=== PATIENT | male | born 1950 | race Two or more races ===

== ENCOUNTER 2017-04-14 01:42 | Emergency (ER) | payer MEDICARE, OTHER ==
[2017-04-14] MEDS ORDERED: Aspirin Low Dose CHEW TAB* 81 MG PO ONE (02:07)
--- NOTE | 2017-04-14 02:09 | ED ---
Dominic Meléndez Thomas, scribed for Robert Royal MD on 04/14/17 at 0203 . HPI Chest Pain - HPI Summary HPI Summary: The pt is a 67 y/o M presenting to the ED c/o CP that began 23:00 yesterday. The pain is described as a pressure quality and is in his L chest. He took liquid antacid for the pain to no apparent relief of pain. The pain is not worsened or improved by movement. He still feels CP in the ED. He additionally c /o vomiting (2x since onset of pain). Last night he ate gespacho and tuna fish. - History of Current Complaint Chief Complaint: EDChestPainROMI Time Seen by Provider: 04/14/17 02:00 Hx Obtained From: Patient Onset/Duration: Started Hours Ago - at 23:00 on 04/13 (three hours since presentation to the ED), Still Present Current Severity: Moderate Pain Intensity: 5 Pain Scale Used: 0-10 Numeric Chest Pain Location: Discrete at: - L chest Character: Pressure/Squeezing Aggravating Factor(s): Nothing Alleviating Factor(s): Nothing Associated Signs and Symptoms: Positive: Vomiting - 2x since onset of pain - Allergy/Home Medications Allergies/Adverse Reactions: Allergies Allergy/AdvReac Type Severity Reaction Status Date / Time Shellfish Allergy Allergy Itching Verified 12/26/13 07:54 PMH/Surg Hx/FS Hx/Imm Hx Previously Healthy: No Endocrine/Hematology History: Denies: Hx Diabetes, Hx Thyroid Disease Cardiovascular History: Denies: Hx Hypertension Respiratory History: Denies: Hx Asthma, Hx Chronic Obstructive Pulmonary Disease (COPD) GI History: Denies: Hx Ulcer - Surgical History Surgery Procedure, Year, and Place: inguinal right hernia surgery Infectious Disease History: Denies: Hx Clostridium Difficile, Hx Hepatitis, Hx Human Immunodeficiency Virus (HIV), Hx of Known/Suspected MRSA, Hx Shingles, Hx Tuberculosis, Traveled Outside the [place] in Last 30 Days - Family History Known Family History: Negative: Hypertension, Diabetes - Social History Alcohol Use: Occasionally Substance Use Type: Reports: None Review of Systems Constitutional: Negative Negative: Fever Eyes: Negative ENT: Negative Positive: Chest Pain - pressure quality, onset 23:00 04/13 (three hours before presentation to ED) Respiratory: Negative Positive: Vomiting - 2x since onset of pain Genitourinary: Negative Musculoskeletal: Negative Skin: Negative Neurological: Negative Psychological: Normal All Other Systems Reviewed And Are Negative: Yes Physical Exam Triage Information Reviewed: Yes Vital Signs On Initial Exam: Initial Vitals Temp Pulse Resp BP Pulse Ox 97 F 58 14 156/75 99 04/14/17 01:49 04/14/17 01:49 04/14/17 01:49 04/14/17 01:49 04/14/17 01:49 Vital Signs Reviewed: Yes Appearance: Positive: Well-Appearing, No Pain Distress Skin: Positive: Warm Head/Face: Positive: Normal Head/Face Inspection Eyes: Positive: JOSEMANUEL ENT: Positive: Hearing grossly normal Neck: Positive: Supple Respiratory/Lung Sounds: Positive: Clear to Auscultation, Breath Sounds Present Cardiovascular: Positive: RRR Abdomen Description: Positive: Nontender, No Organomegaly, Soft Bowel Sounds: Positive: Present Musculoskeletal: Positive: Strength/ROM Intact Neurological: Positive: Alert, Oriented to Person Place, Time Psychiatric: Positive: Affect/Mood Appropriate Diagnostics - Vital Signs Vital Signs Temp Pulse Resp BP Pulse Ox 04/14/17 01:49 97 F 58 14 156/75 99 - Laboratory Result Diagrams: 04/14/17 02:00 04/14/17 02:00 Lab Statement: Any lab studies that have been ordered have been reviewed, and results considered in the medical decision making process. - Radiology CXR Xray Interpretation: No Acute Changes - No evidence of acute cardiopulmonary disease. Radiology Interpretation Completed By: ED Physician - EKG 01:55 Cardiac Rate: Bradycardia - 57 BPM EKG Interpretation: Sinus Bradycardia. Re-Evaluation - Re-Evaluation First Eval Re-Evaluation Time: 06:11 Change: Improved - results d/w pt, pt pain free Chest Pain Course/Dx - Diagnoses Provider Diagnoses: Chest pain Discharge - Discharge Plan Condition: Improved Disposition: HOME Patient Education Materials: Chest Pain (ED) Referrals: Andrew Bailey MD [Primary Care Provider] - 3 Days Additional Instructions: Follow up with your primary care provider. Try to eat a bland diet. The documentation as recorded by the Dominic segundo Thomas accurately reflects the service I personally performed and the decisions made by , Robert Royal MD.
[2017-04-14 02:25] LABS: Hematocrit 48 % (42-52); Hemoglobin 16.4 g/dl (14.0-18.0); Mean Corpuscular HGB Conc 34 g/dl (31-36); Mean Corpuscular Hemoglobin 32 pg (27-31); Mean Corpuscular Volume 92 fL (80-94); Mean Platelet Volume 8 um3 (7.4-10.4); Red Blood Count 5.21 10^6/ul (4.0-5.4); Red Cell Distribution Width 13 % (10.5-15); White Blood Count 15.6 10^3/ul (3.5-10.8)
[2017-04-14 02:37] LABS: Albumin 4.7 g/dL (3.2-5.2); Calcium 9.4 mg/dL (8.6-10.3); EGFR African American 95.3 (>60); EGFR Non-African American 74.1 (>60); Globulin 2.8 g/dL (2-4); Magnesium 2.2 mg/dL (1.9-2.7); Potassium 3.5 mmol/L (3.5-5.0); Total Bilirubin 1.7 mg/dL (0.2-1.0); Total Protein 7.5 g/dL (6.4-8.9)
[2017-04-14 06:02] VITALS: BP 152/73
--- NOTE | 2017-04-14 07:46 | RAD ---
HISTORY: Chest pain COMPARISONS: None VIEWS: 4: Frontal dual-energy and lateral views of the chest. FINDINGS: CARDIOMEDIASTINAL SILHOUETTE: The cardiomediastinal silhouette is normal. SREE: The sree are normal. PLEURA: The costophrenic angles are sharp. No pleural abnormalities are noted. LUNG PARENCHYMA: The lungs are clear. ABDOMEN: The upper abdomen is clear. There is no subphrenic gas. BONES AND SOFT TISSUES: No bone or soft tissue abnormalities are noted. OTHER: None. IMPRESSION: NO ACTIVE CARDIOPULMONARY DISEASE.
== END 2017-04-14 06:40 | disposition home or self-care (01) ==
LOC: ED 01:42
DX: R07.9 Chest pain, unspecified (principal); R11.10 Vomiting, unspecified
CPT/HCPCS: 36415; 71020; 80053; 83605; 83735; 84484; 85025; 93005; 99285; A9270-GY

== ENCOUNTER 2017-04-21 22:36 | Emergency (ER) | payer MEDICARE, OTHER ==
[2017-04-21 22:40] VITALS: BP 164/81
== END 2017-04-22 00:01 | disposition left against medical advice (07) ==
LOC: ED 22:36
DX: R10.9 Unspecified abdominal pain (principal); Z53.21 Procedure and treatment not carried out due to patient leaving prior to being seen by health care provider

== ENCOUNTER 2017-04-22 10:59 | Inpatient (IN) | payer MEDICARE, OTHER ==
[2017-04-22] MEDS ORDERED: Ondansetron TAB* 4 MG PO ONE (11:21)
[2017-04-22] MEDS ORDERED: NS 0.9% 1000 ML* 1,000 ML IV ONE (11:21)
[2017-04-22] MEDS ORDERED: Lidocaine 2% VISCOUS* 15 ML UDC PO ONE (11:21)
[2017-04-22] MEDS ORDERED: Al Hydrox/Mg Hydrox/Simet LIQ* 30 ML UDC PO ONE (11:21)
[2017-04-22] MEDS ORDERED: Pantoprazole IV* 40 MG IV ONE (11:21)
[2017-04-22 11:55] LABS: Hematocrit 49 % (42-52); Hemoglobin 16.3 g/dl (14.0-18.0); Mean Corpuscular HGB Conc 34 g/dl (31-36); Mean Corpuscular Hemoglobin 31 pg (27-31); Mean Corpuscular Volume 93 fL (80-94); Mean Platelet Volume 8 um3 (7.4-10.4); Red Blood Count 5.21 10^6/ul (4.0-5.4); Red Cell Distribution Width 12 % (10.5-15); White Blood Count 12.6 10^3/ul (3.5-10.8)
[2017-04-22 12:12] LABS: Albumin 4.5 g/dL (3.2-5.2); BUN/Creatinine Ratio 12.1 (8-20); C Reactive Protein 58.82 mg/L (< 5.00); Calcium 9.6 mg/dL (8.6-10.3); EGFR African American 96.4 (>60); Magnesium 2.1 mg/dL (1.9-2.7); Potassium 3.6 mmol/L (3.5-5.0); Total Bilirubin 3.5 mg/dL (0.2-1.0); Total Protein 7.5 g/dL (6.4-8.9)
--- NOTE | 2017-04-22 12:31 | RAD ---
Indication: Severe epigastric and periumbilical abdominal pain. Comparison: December 26, [address] abdomen and pelvis. Technique: Ultrasound of the abdominal aorta and common iliac arteries. Report: The proximal, mid, and distal segments of the abdominal aorta measure up to 1.6 x 1.7, 1.8 x 1.5, and 1.3 x 1.4 cm orthogonal diameter respectively. The corresponding segments demonstrate normal triphasic waveforms. The aortic bifurcation and common iliac arteries could not be visualized due to bowel gas and poor tolerance for ultrasound exam. No ascites visualized within the [id number]. IMPRESSION: Negative for aneurysm of the abdominal aorta. The common iliac arteries could not be visualized.
[2017-04-22] MEDS ORDERED: Morphine INJ* 4 MG/ML 1 ML SYRINGE IV ONE (13:18)
[2017-04-22 13:34] LABS: Urine Bacteria Absent (Absent); Urine Bilirubin Negative (Negative); Urine Glucose 1+(50 mg/dL) (Negative); Urine Nitrite Negative (Negative)
[2017-04-22 13:36] LABS: Troponin I 0.01 ng/mL (<0.04)
[2017-04-22] MEDS ORDERED: fentaNYL* 50 MCG/ML 2 ML VIAL (100 MCG VIAL) IV SLOW PU ONE ×2 (13:47→15:59)
--- NOTE | 2017-04-22 13:54 | RAD ---
Indication: RIGHT upper quadrant and epigastric pain. History of cholelithiasis. Comparison: December 26, 2013 CT. Technique: RIGHT upper quadrant ultrasound. Report: Appropriate direction flow documented in the portal and hepatic veins. 14 cm liver is grossly normal in echogenicity. Negative for focal hepatic lesions. Negative for intrahepatic biliary dilatation. 6 mm common bile duct. Adequately distended gallbladder is remarkable for mobile biliary sludge and innumerable small weakly shadowing probable poorly calcified stones. Top normal gallbladder wall thickness at 3 mm. Negative for pericholecystic fluid. Negative for sonographic Zambrano's sign. The pancreas is obscured secondary to bowel gas limiting assessment. Negative for ascites. 10.1 x 5.6 x 5.2 cm RIGHT kidney is unremarkable. IMPRESSION: Biliary sludge and innumerable small poorly calcified gallstones in the gallbladder. Negative for significant gallbladder wall thickening, pericholecystic fluid, biliary dilatation, or sonographic Zambrano's sign to strongly support presence of acute cholecystitis.
[2017-04-22] MEDS ORDERED: Ondansetron INJ* 2 MG/ML VIAL IV ONE (16:00)
--- NOTE | 2017-04-22 16:19 | RAD ---
CLINICAL HISTORY: Abdominal pain COMPARISON: December 26, 2013 TECHNIQUE: Multiple contiguous axial CT scans were obtained of the abdomen and pelvis, without intravenous contrast enhancement. Coronal and sagittal multiplanar reformations are submitted for review. Oral contrast was not administered. FINDINGS: The study is limited by the lack of intravenous contrast. This limits evaluation of the solid organs and vasculature. LUNG BASES: There is minimal linear opacification of the right lung base LIVER: There is low-attenuation hepatic parenchymal lesion suggestive of a hepatic cyst in the right lobe of liver. This measures simple fluid in attenuation. BILE DUCTS: There is no intrahepatic or extrahepatic biliary dilatation. GALLBLADDER: A gallstone is noted in the neck of the gallbladder. There is stranding of the pericholecystic fat. PANCREAS: The pancreas is normal, without mass or ductal dilatation. SPLEEN: Normal in size and appearance. UPPER GI TRACT: Evaluation of the gastrointestinal tract is limited by incomplete gastric distention. There is a there is a small sliding hiatal hernia. SMALL BOWEL AND MESENTERY: The small bowel is normal in contour, course, and caliber. There is no obstruction or dilatation. COLON: The colon is normal in contour, course, caliber. There is no pericolonic inflammatory change. There is a tubular, vermiform, hollow viscus that is blind ending, and originates from the cecum, consistent with a normal appendix. There is no periappendiceal inflammatory change. ADRENALS: Normal bilaterally. KIDNEYS: There is a simple cyst of the lower pole left kidney. There is no appreciable hydronephrosis or nephrolithiasis. BLADDER: The bladder is smooth in contour. PELVIC ORGANS: The pelvic organs are not visualized. AORTA: The aorta is normal. IVC: Unremarkable LYMPH NODES: There is no lymphadenopathy by size criteria. ABDOMINAL WALL: There is a fat-containing left inguinal hernia BONES AND SOFT TISSUES: Degenerative changes are noted OTHER: None IMPRESSION: 1. CHOLELITHIASIS WITH PERICHOLECYSTIC INFLAMMATORY CHANGE SUGGESTIVE OF ACUTE CHOLECYSTITIS. 2. FAT-CONTAINING LEFT INGUINAL HERNIA.
[2017-04-22] MEDS ORDERED: HYDROmorphone* 1 MG/ML 1 ML SYR IV SLOW PU PRN (17:24)
[2017-04-22] MEDS ORDERED: Ondansetron INJ* 2 MG/ML VIAL IV PRN (17:25)
[2017-04-22] MEDS ORDERED: Zosyn per Pharmacy* NOTE FOLLOW UP SCH (18:00)
[2017-04-22] MEDS: NS 0.9% 1000 ML* 1,000 ML IV SCH (18:21)
[2017-04-22] MEDS: HYDROmorphone* 1 MG/ML 1 ML SYR IV SLOW PU PRN (21:17)
[2017-04-22] MEDS: ZOSYN 3.375 GM Q8H per EXTENDED INFUSION IVPB SCH ×2 (22:24)
[2017-04-22] MEDS: Heparin VIAL(*) 5000 UNITS/ML VIAL (FIVE THOUSAND) SUBCUT SCH (22:26)
--- NOTE | 2017-04-22 23:28 | HP ---
HISTORY AND PHYSICAL: ADDENDUM: Mr. Urban is a 67-year-old male who presented to the hospital complaining of epigastri c pain and right upper quadrant abdominal pain. A CT of the abdomen shows stone in the cystic duct of the gallbladder. His liver function tests are markedly elevated. The CT also shows cholecystiti s. He is going to be admitted to the hospital. He will require most likely ERCP. Dr. Hare is s eeing the patient right now in consultation. Eventually, he will also require surgery evaluation. For further details of the patient's presentation and plan, please see history and physical dictated by Heidi Fernando, on 04/22/17, with which I agree. [id number]/[facility] #: [id number]
--- NOTE | 2017-04-22 23:37 | HP ---
CC: Dr. Andrew Bailey* HISTORY AND PHYSICAL: DATE OF ADMISSION: 04/22/17 PRIMARY CARE PHYSICIAN: Dr. Andrew Bailey. ATTENDING PHYSICIAN: Dr. Citlali Nuñez* (dictated by Kenyetta Steiner NP). CHIEF COMPLAINT: Burning epigastric pain. HISTORY OF PRESENT ILLNESS: Mr. Urban is a 67-year-old male with past medical history significant for hyperlipidemia and prostate cancer, who presents to the emergency room today with complaints of a burning epigastric pain. The patient states that he was seen in the emergency room approximately 10 days ago and had a cardiac workup and was discharged to home. He states that the pain recurred last evening. He came to the ER, registered, and left without being seen as the pain started to improve. As the patient's pain increased this morning, he decided to present again to the emergency room for further evaluation of his symptoms. The patient denies any recent fever, chills , chest pain, shortness of breath. The patient has associated nausea and vomiting with his pain. The patient denies any knowledge of correlation with foods that may be correlating with his pain. While in the emergency room, the patient received Maalox, IV fentanyl, IV morphine, GI cocktail, Zofran, IV Protonix, and normal saline. He continues to have significant epigastric pain. He had labs drawn, they were significant for elevated white blood cell count of 12.6, elevated liver function tests with an AST of 530, ALT of 338, total bilirubin of 3.5. The patient had a urinalysis showing positive protein, 1+ ketones, rbc's 1+, glucose 1+. The patient's alk phos was 159. The patient had an EKG showing a sinus rhythm with a rate of 62. His EKG was similar to previous EKG from 04/14/17. The patient had an aorta ultrasound showing negative for aneurysm of the abdominal aorta. He had an abdominal ultrasound showing biliary sludge and innumerable small poorly calcified gallstones in the gallbladder. The patient had a CT of his abdomen and pelvis showing a cholelithiasis with a pericholecystic inflammatory change suggestive of acute cholecystitis with a gallstone located in the neck of the gallbladder. Based off the patient's presentation, the Hospitalists were asked to evaluate the patient for admission. PAST MEDICAL HISTORY: 1. Hyperlipidemia. 2. Prostate cancer. PAST SURGICAL HISTORY: 1. Status post hernia repair. 2. Status post laparoscopic prostatectomy in 2016. HOME MEDICATIONS: Include: 1. Multivitamin 1 tablet oral daily. 2. Viagra 50 to 100 mg oral daily as needed for erectile disfunction. 3. Aspirin 81 mg oral daily. 4. Atorvastatin 20 mg oral daily. ALLERGIES: SHELLFISH. FAMILY HISTORY: The patient's father passed at age 92 from congestive heart failure. He denies any family history of diabetes mellitus. The patient's mother had a history of lymphoma. SOCIAL HISTORY: The patient denies tobacco or recreational drug use. He occasionally drinks alcohol. He is retired. He lives with his . His , Rosalia Urban, and his son, Chris Urban, will be his surrogate decision makers in the event he is unable to make decisions for himself. REVIEW OF SYSTEMS: I performed a 14-point review of systems. All the pertinent positives and negatives are mentioned in the history of present illness. The remaining review of systems is negative. PHYSICAL EXAMINATION GENERAL APPEARANCE: The patient is alert, pleasant, and appears to be in no acute distress. VITAL SIGNS: Temperature 97.6, heart rate 71, respiratory rate 18, O2 sat 95% on room air, blood pressure 116/71. HEENT: Normocephalic, atraumatic. Pupils are equal and reactive to light. Extraocular movements are intact. RESPIRATORY: There is no accessory muscle use and the lungs are clear to auscultation bilaterally. CARDIOVASCULAR: Regular rate and rhythm. S1 and S2 present. There are no murmurs, rubs, or gallops heard. ABDOMEN: Soft, prominently tender in the epigastric area and the right upper quadrant, but the patient does have diffuse abdominal tenderness with palpation. There are bowel sounds present x4. EXTREMITIES: There is no lower extremity edema. DP and PT pulses are 2+ and symmetric. MUSCULOSKELETAL: There is no clubbing or cyanosis noted. The patient exhibits good strength in all extremities. NEUROLOGICAL: The patient is alert and oriented x4. Cranial nerves II through XII are grossly intact. PSYCHOLOGICAL: The patient is calm and cooperative. SKIN: There are no rashes or abnormalities seen. DIAGNOSTIC STUDIES/LAB DATA: Sodium 137, potassium 3.6, chloride 99, CO2 27, BUN 12, creatinine 0.99, and glucose 177. White blood cell count 12.6, hemoglobin 16.3, hematocrit 49, and platelet count 231. Alk phos 159, AST 530, ALT 338, total bilirubin 3.5, lactic acid 2.6, CRP 58.82, BUN 173. Urinalysis is significant for positive protein, ketones 1+, rbc's 1+, glucose 1+. EKG shows a sinus rhythm with a rate of 62. There are no acute signs of ischemia. This EKG is similar to previous EKG from 04/14/17. 1. Aorta ultrasound from today. Radiologist's impression: Negative for aneurysm of the abdominal aorta. The common iliac arteries could not be visualized. 2. Abdominal ultrasound from today. Radiologist's impression: Biliary sludge and innumerable small poorly calcified gallstones in the gallbladder. Negative for significant gallbladder wall thickening, pericholecystic fluid, biliary dilation, or sonographic Zambrano sign to strongly support presence of acute cholecystitis. 3. Abdomen and pelvis CT from today. Radiologist's impression: Cholelithiasis with pericholecystic inflammatory change suggestive of acute cholecystitis. Fat- containing left inguinal hernia. IMPRESSION: Mr. Urban is a 67-year-old male with a past medical history significant for hyperlipidemia, who presents to the emergency room with complaints of epigastric pain. He will be admitted as an inpatient for abdominal pain and acute cholelithiasis. ASSESSMENT/PLAN: 1. Abdominal pain. I suspect the patient's abdominal pain represents acute cholelithiasis. The patient will be placed on IV fluids and Zosyn. He will have a GI and Surgery consult. CT of the abdomen and pelvis show that he has a stone in the neck of the gallbladder. We will order an MRCP for the morning. We will trend the patient's LFTs. 2. Hyperlipidemia. For now, while the patient n.p.o., we will hold his statin. 3. History of prostate cancer. 4. Fluids, electrolytes, and nutrition, n.p.o. 5. Code status. Full code. 6. DVT prophylaxis. The patient is at high risk and will have subcu heparin. DISPOSITION: Inpatient for acute cholelithiasis. TIME SPENT: Time for this admission was 60 minutes, greater than half of that was spent with the patient and discussing medications, past medical history , and events leading up to their arrival today and performing a physical examination. The case has been reviewed with the attending, Dr. Nuñez, who agrees with the plan of care. Reviewed by KENYETTA STEINER, CALL CENTER AGENT-C 04/23/17 1408 ADDENDUM TO HISTORY AND PHYSICAL: Mr. Urban is a 67-year-old male who presented to the hospital complaining of epigastric pain and right upper quadrant abdominal pain. A CT of the abdomen shows stone in the gallbladder neck. His liver function tests are markedly elevated. The CT also shows cholecystitis. He is going to be admitted to the hospital. He will require most likely ERCP. Dr. Hare is seeing the patient right now in consultation. Eventually, he will also require surgery evaluation. For further details of the patient's presentation and plan, please see history and physical dictated by Kenyetta Steiner, on 04/22/17, with which I agree. Citlali Nuñez MD [id number]/[facility] #: [id number]/[facility] #: [id number] ANGEL
[2017-04-23] MEDS: HYDROmorphone* 1 MG/ML 1 ML SYR IV SLOW PU PRN ×7 (00:03→22:53)
--- NOTE | 2017-04-23 00:18 | CONS ---
GASTROENTEROLOGY CONSULT: DATE: 04/22/17 CONSULTING PHYSICIANS: Ian Montalvo; Citlali Nuñez* REASON FOR CONSULTATION: Upper abdominal pain and abnormal LFTs in a man with gallstones on ultrasound and an impacted stone at the neck of the gallbladder on CT scan without contrast. 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 Per the ER report, it was perceived a little bit more on the left side and in the chest than in the abdomen. It was somewhat abrupt and he had some cardiac testing that was normal and he was sent home to see his primary doctor. He was feeling so much better by a day or two later that he had stopped going to followup. Then yesterday, he developed abdominal pain and came to the emergency room. After 2 hours and going through the triage process , he began to feel better and went home[facility] came [facility]. He was in more severe pain, and at this time it was more of an epigastric and right upper quadrant aspect. He was afebrile on arrival but by this evening at 1800, he was 100.4. Labs showed white count 12.6 and bilirubin 3.5, which is up from 1.7 eight days ago. PAST MEDICAL HISTORY: 1. Prostate cancer - status post prostatectomy at the [facility], July 2016. He has had PSAs in followup at his primary office. 2. Family history of colon cancer - colonoscopies 1999, 2003, and 2010 have been negative. It actually seems that his father had polyps and not necessarily a cancer. 3. Right inguinal hernia - July [address] Resendiz. 4. Hypercholesterolemia - he has never actually had any cardiac issues. 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 He is . REVIEW OF SYSTEMS: No history of hepatitis, ulcers, rectal bleeding, migraines , CVA, seizures, [place], syncope, palpitations, pulmonary disease, or TB. EXAM: He is a tired-appearing man in no overt distress at this time, though saying he has abdominal pain. He is kind of sleepy at times. He is not overtly icteric. Mucous membranes are normal. He has no adenopathy. His lungs are clear. Heart sounds are regular. The abdomen is symmetric with normal bowel sounds, soft, though he guards a little bit on the right upper quadrant. There is no rigidity. Extremities show no edema. Neurologic is nonfocal. LABS: On admission, hemoglobin 16.3, hematocrit 49, platelets 231, white count 12.6. Creatinine 0.99, BUN 12, glucose 177, bilirubin 3.50, ALT 388, alkaline phosphatase 159, CRP 58.82. CT scan - reading out thickening and inflammation around the gallbladder wall with a probable stone impacted in the neck of the gallbladder. There is no extrahepatic ductal dilation. IMPRESSION: Probable cholecystitis, although the LFTs are elevated more than one would usually expect. This could be a Mirizzi physiology (bili was already up at 1.7 on 04/14) or he may have passed a small stone or a contribution of both. Trying to cool him down with intravenous antibiotics is indicated and the course of his pain, LFTs, and the results of an MRCP can be used to decide on the order of treatment, possible ERCP and ultimately, gallbladder removal, although the timing of that is in question. [id number]/[facility] #: [id number] MTDD
[2017-04-23] MEDS: Acetaminophen SUPP* 650 MG SUPP PR PRN (03:37)
[2017-04-23] MEDS: NS 0.9% 1000 ML* 1,000 ML IV SCH ×3 (03:42→22:06)
[2017-04-23 05:25] LABS: Hematocrit 47 % (42-52); Hemoglobin 15.7 g/dl (14.0-18.0); Mean Corpuscular HGB Conc 33 g/dl (31-36); Mean Corpuscular Hemoglobin 31 pg (27-31); Mean Corpuscular Volume 93 fL (80-94); Mean Platelet Volume 8 um3 (7.4-10.4); Red Blood Count 5.04 10^6/ul (4.0-5.4); Red Cell Distribution Width 12 % (10.5-15); White Blood Count 22.4 10^3/ul (3.5-10.8)
[2017-04-23 05:46] LABS: Albumin 3.7 g/dL (3.2-5.2); BUN/Creatinine Ratio 11.2 (8-20); Calcium 8.5 mg/dL (8.6-10.3); EGFR Non-African American 84.8 (>60); Globulin 2.8 g/dL (2-4); Potassium 3.4 mmol/L (3.5-5.0); Total Bilirubin 1.7 mg/dL (0.2-1.0); Total Protein 6.5 g/dL (6.4-8.9)
[2017-04-23] MEDS: Heparin VIAL(*) 5000 UNITS/ML VIAL (FIVE THOUSAND) SUBCUT SCH ×3 (06:19→22:06)
[2017-04-23] MEDS: ZOSYN 3.375 GM Q8H per EXTENDED INFUSION IVPB SCH ×6 (06:21→22:06)
--- NOTE | 2017-04-23 11:44 | RAD ---
Indication: Acute cholecystitis. Comparison: April 22, [address] Technique: BTRa 1.5 Latia XR700V with GEM suite. Noncontrast magnetic resonance cholangiopancreatography. Report: Distended gallbladder with mild wall thickening and trace pericholecystic fluid. Multiple small gallstones including at the neck of the gallbladder. Negative for intra or extrahepatic biliary dilatation. No filling defects are identified within the common bile duct to indicate ductal stones. Negative for pancreatic duct dilatation. Multiple T2 hyperintense well-circumscribed hepatic lesions are identified corresponding with water density lesions on CT consistent with hepatic cysts. Small volume of predominant perihepatic ascites. The kidneys are remarkable for a few benign morphology cysts. IMPRESSION: 1. Distended gallbladder with cholelithiasis, mild wall thickening, and trace pericholecystic fluid concerning for acute cholecystitis. 2. Negative for biliary dilatation or evidence for choledocholithiasis.
--- NOTE | 2017-04-23 15:51 | PN ---
Subjective Date of Service: 04/23/17 Interval History: Mr. Urban reports some mild right abdominal discomfort but states that he is feeling well otherwise. He denies chest pain, SOB, or nausea. Objective Active Medications: Acetaminophen (Tylenol Supp*) 650 mg UT Q6H PRN Heparin Sodium (Porcine) (Heparin Vial(*)) 5,000 units SUBCUT Q8HR JOHN Hydromorphone HCl (Dilaudid Iv*) 1 mg IV SLOW PU Q2H PRN Sodium Chloride (Ns 0.9% 1000 Ml*) 1,000 mls @ 125 mls/hr IV PER RATE JOHN Piperacillin Sod/Tazobactam (Sod 3.375 gm/ Sodium Chloride) 100 mls @ 25 mls/ hr IVPB Q8H JOHN Ondansetron HCl (Zofran Inj*) 4 mg IV Q6H PRN Pharmacy Consult (Zosyn Per Pharmacy*) 1 note FOLLOW UP .ZOSYN PER PHARMACY JOHN Vital Signs 04/22/17 04/22/17 04/22/17 16:20 17:46 17:55 Temperature 100.4 F Pulse Rate 61 Respiratory 18 16 16 Rate Blood Pressure 164/76 (mmHg) O2 Sat by Pulse 95 Oximetry 04/22/17 04/22/17 04/22/17 17:58 18:07 19:07 Temperature 100.4 F Pulse Rate 61 Respiratory 16 16 16 Rate Blood Pressure 164/76 (mmHg) O2 Sat by Pulse 95 Oximetry 04/22/17 04/22/17 04/22/17 19:20 19:29 21:17 Temperature 100.0 F Pulse Rate 67 Respiratory 16 20 16 Rate Blood Pressure 159/72 (mmHg) O2 Sat by Pulse 95 Oximetry 04/22/17 04/23/17 04/23/17 22:17 00:03 00:09 Temperature 100.4 F Pulse Rate 74 Respiratory 16 16 16 Rate Blood Pressure 158/64 (mmHg) O2 Sat by Pulse 93 Oximetry 04/23/17 04/23/17 04/23/17 01:03 02:52 03:05 Temperature 102.1 F Pulse Rate 92 Respiratory 16 16 16 Rate Blood Pressure 142/65 (mmHg) O2 Sat by Pulse 91 Oximetry 04/23/17 04/23/17 04/23/17 03:52 04:50 07:40 Temperature 99.9 F 99.4 F Pulse Rate 75 Respiratory 16 16 Rate Blood Pressure 113/60 (mmHg) O2 Sat by Pulse 93 Oximetry 04/23/17 04/23/17 04/23/17 07:55 08:00 08:55 Temperature Pulse Rate Respiratory 16 16 16 Rate Blood Pressure (mmHg) O2 Sat by Pulse Oximetry 04/23/17 04/23/17 04/23/17 10:54 11:43 14:01 Temperature Pulse Rate Respiratory 18 15 18 Rate Blood Pressure (mmHg) O2 Sat by Pulse Oximetry Oxygen Devices in Use Now: None Appearance: Male sitting up in bed in NAD Eyes: No Scleral Icterus Ears/Nose/Mouth/Throat: Mucous Membranes Moist Neck: Trachea Midline Respiratory: Symmetrical Chest Expansion and Respiratory Effort, Clear to Auscultation Cardiovascular: NL Sounds; No Murmurs; No JVD, No Edema Abdominal: NL Sounds; No Tenderness; No Distention Lymphatic: No Cervical Adenopathy Extremities: No Edema Skin: No Rash or Ulcers Neurological: Alert and Oriented x 3, NL Muscle Strength and Tone Nutrition: - - NPO Result Diagrams: 04/23/17 04:57 04/23/17 04:57 Assess/Plan/Problems-Billing Assessment: Mr. Urban is a 67 yo male with a PMH of hernia repair and prostatectomy who was admitted on 04/22/17 with cholecystitis. - Patient Problems (1) Cholecystitis Comment: - Appreciate GI and Surgery consultations. - MRCP shows cholecysitis only. - Plan for OR in AM. - Continue zosyn. (2) Hyperlipidemia Comment: - Hold atorvastatin while NPO. (3) DVT prophylaxis (4) Full code status Status and Disposition: Inpatient with expected LOS > 2 days. Anticipate discharge to home when medically stable.
--- NOTE | 2017-04-23 15:59 | ED ---
Kelli Meléndez Auryana, scribed for Miah James MD on 04/22/17 at 1154 . Abdominal Pain/Male - HPI Summary HPI Summary: 67 year old male presents to the ED with abdominal pain starting yesterday evening. Patient characterizes the pain as a burning pain located in the mid abdomen. He denies any radiation of pain and currently the pain is a 8/10. He also has diaphoresis and feels "woozy". He denies any back pain, chest pain or SOB. He denies any abnormal foods. He does report an episode 10 days ago with similar symptoms - seen here in ED for cardiac etiology r/o - no significant findings. He does report having a sour taste in his mouth in the past and has had a previous endoscopy done - normal per patient. He denies any PMHx of GERD , aneurysms, or any dissections. - History of Current Complaint Chief Complaint: EDAbdPain Stated Complaint: ABD PAIN, Time Seen by Provider: 04/22/17 11:16 Hx Obtained From: Patient Onset/Duration: Gradual Onset, Lasting Hours, Still Present Timing: Constant Severity Initially: Moderate Severity Currently: Severe Pain Intensity: 9 Pain Scale Used: 0-10 Numeric Location: Diffuse - mid abdomen Radiates: No Associated Signs And Symptoms: Positive: Diaphoresis, Other - feels "woozy" - Allergies/Home Medications Allergies/Adverse Reactions: Allergies Allergy/AdvReac Type Severity Reaction Status Date / Time Shellfish Allergy Allergy Itching Verified 12/26/13 07:54 Home Medications: Home Medications Aspirin EC Low Dose* [Ecotrin EC Low Dose 81 MG*] 81 mg PO DAILY 04/22/17 [ History Confirmed 04/22/17] Atorvastatin* [Lipitor*] 20 mg PO DAILY 04/22/17 [History Confirmed 04/22/17] Multiple Vitamins W/ Minerals [Multivitamin Men 50+] 1 tab PO DAILY 04/22/17 [ History Confirmed 04/22/17] Sildenafil Citrate [Viagra] 50 - 100 mg PO ONCE PRN 04/22/17 [History Confirmed 04/22/17] PMH/Surg Hx/FS Hx/Imm Hx Endocrine/Hematology History: Denies: Hx Diabetes, Hx Thyroid Disease Cardiovascular History: Denies: Hx Hypertension Respiratory History: Denies: Hx Asthma, Hx Chronic Obstructive Pulmonary Disease (COPD) GI History: Denies: Hx Ulcer - Surgical History Surgery Procedure, Year, and Place: inguinal right hernia surgery Infectious Disease History: Denies: Hx Clostridium Difficile, Hx Hepatitis, Hx Human Immunodeficiency Virus (HIV), Hx of Known/Suspected MRSA, Hx Shingles, Hx Tuberculosis, Traveled Outside the [place] in Last 30 Days - Family History Known Family History: Negative: Hypertension, Diabetes - Social History Alcohol Use: Occasionally Substance Use Type: Reports: None Smoking Status (MU): Never Smoked Tobacco Review of Systems Positive: Skin Diaphoresis, Other - feelts "woozy". Negative: Fever Eyes: Negative ENT: Negative Cardiovascular: Negative Negative: Chest Pain Respiratory: Negative Negative: Shortness Of Breath Positive: Abdominal Pain Genitourinary: Negative Musculoskeletal: Negative Skin: Negative Neurological: Negative Psychological: Normal All Other Systems Reviewed And Are Negative: Yes Physical Exam - Summary Physical Exam Summary: VITAL SIGNS: Reviewed. GENERAL: Patient is a well-developed and nourished male who is lying comfortable in the stretcher. Patient is not in any acute respiratory distress. Some distress secondary to the epigastric pain. HEAD AND FACE: Normocephalic and atraumatic. EYES: PERRLA, EOMI x 2, No injected conjunctiva. EARS: Hearing grossly intact. Ear canals and tympanic membranes are WNL. MOUTH: Oropharynx within normal limits. NECK: Supple, trachea is midline, no adenopathy, no JVD. CHEST: Symmetric, no tenderness at palpation LUNGS: Clear to auscultation bilaterally. No wheezing or crackles. CVS: RRR, S1 and S2 present, no murmurs or gallops appreciated. ABDOMEN: Soft, epigastric tender. No signs of distention. Positive bowel sounds. No rebound no guarding, and no masses palpated. No abdominal bruit or pulsations. EXTREMITIES: FROM in all major joints, no edema, no cyanosis or clubbing. Pulses in the upper and lower extremities are equal and strong. NEURO: Alert and oriented x 3. No acute neurological deficits. Speech is normal. SKIN: Dry and warm Triage Information Reviewed: Yes Vital Signs On Initial Exam: Initial Vitals Temp Pulse Resp BP Pulse Ox 97.0 F 64 22 176/79 100 04/22/17 11:04 04/22/17 11:04 04/22/17 11:04 04/22/17 11:04 04/22/17 11:04 Vital Signs Reviewed: Yes Diagnostics - Vital Signs Vital Signs Temp Pulse Resp BP Pulse Ox 04/22/17 11:04 97.0 F 64 22 176/79 100 - Laboratory Lab Results: Lab Results 04/22/17 04/22/17 04/22/17 Range/Units 11:45 11:45 11:45 WBC 12.6 H (3.5-10.8) 10^3/ul RBC 5.21 (4.0-5.4) 10^6/ul Hgb 16.3 (14.0-18.0) g/dl Hct 49 (42-52) % MCV 93 (80-94) fL MCH 31 (27-31) pg MCHC 34 (31-36) g/dl RDW 12 (10.5-15) % Plt Count 231 (150-450) 10^3/ul MPV 8 (7.4-10.4) um3 Neut % (Auto) 77.3 (38-83) % Lymph % (Auto) 12.4 L (25-47) % [place] % (Auto) 9.5 H (1-9) % Eos % (Auto) 0 (0-6) % Baso % (Auto) 0.8 (0-2) % Absolute Neuts (auto) 9.7 H (1.5-7.7) 10^3/ul Absolute Lymphs (auto) 1.6 (1.0-4.8) 10^3/ul Absolute Monos (auto) 1.2 H (0-0.8) 10^3/ul Absolute Eos (auto) 0 (0-0.6) 10^3/ul Absolute Basos (auto) 0.1 (0-0.2) 10^3/ul Absolute Nucleated RBC 0.01 10^3/ul Nucleated RBC % 0.1 Sodium 137 (133-145) mmol/L Potassium 3.6 (3.5-5.0) mmol/L Chloride 99 L (101-111) mmol/L Carbon Dioxide 27 (22-32) mmol/L Anion Gap 11 (2-11) mmol/L BUN 12 (6-24) mg/dL Creatinine 0.99 (0.67-1.17) mg/dL Est GFR ( Amer) 96.4 (>60) Est GFR (Non-Af Amer) 75.0 (>60) BUN/Creatinine Ratio 12.1 (8-20) Glucose 177 H (70-100) mg/dL Lactic Acid 2.6 H* (0.5-2.0) mmol/L Calcium 9.6 (8.6-10.3) mg/dL Magnesium 2.1 (1.9-2.7) mg/dL Total Bilirubin 3.50 H (0.2-1.0) mg/dL AST 530 H (13-39) U/L ALT 338 H (7-52) U/L Alkaline Phosphatase 159 H (34-104) U/L Troponin I 0.01 (<0.04) ng/mL C-Reactive Protein 58.82 H (< 5.00) mg/L B-Natriuretic Peptide ( - 100) pg/mL Total Protein 7.5 (6.4-8.9) g/dL Albumin 4.5 (3.2-5.2) g/dL Globulin 3.0 (2-4) g/dL Albumin/Globulin Ratio 1.5 (1-3) Lipase 18 (11.0-82.0) U/L Urine Color Urine Appearance Urine pH (5-9) Ur Specific [place] (1.010-1.030) Urine Protein (Negative) Urine Ketones (Negative) Urine Blood (Negative) Urine Nitrate (Negative) Urine Bilirubin (Negative) Urine Urobilinogen (Negative) Ur Leukocyte Esterase (Negative) Urine WBC (Auto) (Absent) Urine RBC (Auto) (Absent) Urine Bacteria (Absent) Urine Glucose (Negative) 04/22/17 04/22/17 Range/Units 11:45 13:05 WBC (3.5-10.8) 10^3/ul RBC (4.0-5.4) 10^6/ul Hgb (14.0-18.0) g/dl Hct (42-52) % MCV (80-94) fL MCH (27-31) pg MCHC (31-36) g/dl RDW (10.5-15) % Plt Count (150-450) 10^3/ul MPV (7.4-10.4) um3 Neut % (Auto) (38-83) % Lymph % (Auto) (25-47) % [place] % (Auto) (1-9) % Eos % (Auto) (0-6) % Baso % (Auto) (0-2) % Absolute Neuts (auto) (1.5-7.7) 10^3/ul Absolute Lymphs (auto) (1.0-4.8) 10^3/ul Absolute Monos (auto) (0-0.8) 10^3/ul Absolute Eos (auto) (0-0.6) 10^3/ul Absolute Basos (auto) (0-0.2) 10^3/ul Absolute Nucleated RBC 10^3/ul Nucleated RBC % Sodium (133-145) mmol/L Potassium (3.5-5.0) mmol/L Chloride (101-111) mmol/L Carbon Dioxide (22-32) mmol/L Anion Gap (2-11) mmol/L BUN (6-24) mg/dL Creatinine (0.67-1.17) mg/dL Est GFR ( Amer) (>60) Est GFR (Non-Af Amer) (>60) BUN/Creatinine Ratio (8-20) Glucose (70-100) mg/dL Lactic Acid (0.5-2.0) mmol/L Calcium (8.6-10.3) mg/dL Magnesium (1.9-2.7) mg/dL Total Bilirubin (0.2-1.0) mg/dL AST (13-39) U/L ALT (7-52) U/L Alkaline Phosphatase (34-104) U/L Troponin I (<0.04) ng/mL C-Reactive Protein (< 5.00) mg/L B-Natriuretic Peptide 173 H ( - 100) pg/mL Total Protein (6.4-8.9) g/dL Albumin (3.2-5.2) g/dL Globulin (2-4) g/dL Albumin/Globulin Ratio (1-3) Lipase (11.0-82.0) U/L Urine Color Yellow Urine Appearance Cloudy Urine pH 8.0 (5-9) Ur Specific [place] 1.014 (1.010-1.030) Urine Protein 1+(30 mg/dl) H (Negative) Urine Ketones 1+ H (Negative) Urine Blood Negative (Negative) Urine Nitrate Negative (Negative) Urine Bilirubin Negative (Negative) Urine Urobilinogen Negative (Negative) Ur Leukocyte Esterase Negative (Negative) Urine WBC (Auto) Absent (Absent) Urine RBC (Auto) 1+(3-5/hpf) H (Absent) Urine Bacteria Absent (Absent) Urine Glucose 1+(50 mg/dl) H (Negative) Result Diagrams: 04/23/17 04:57 04/23/17 04:57 Lab Statement: Any lab studies that have been ordered have been reviewed, and results considered in the medical decision making process. - EKG 11:26 EKG Interpretation: sinus rhythm @ 62 bpm, no ST elevations EKG Comparison: No Significant Change - 04/12/17 - Additional Comments Diagnostic Additional Comments: US ABDOMINAL AORTA COMPLETE IMPRESSION: Negative for aneurysm of the abdominal aorta. The common iliac arteries could not be visualized. US ABDOMEN LIMITED IMPRESSION: Biliary sludge and innumerable small poorly calcified gallstones in the gallbladder. Negative for significant gallbladder wall thickening, pericholecystic fluid, biliary dilatation, or sonographic Zambrano's sign to strongly support presence of acute cholecystitis. Abdominal Pain Fem Course/Dx - Course Assessment/Plan: 67 year old male presents to the ED with abdominal pain starting yesterday evening. Patient characterizes the pain as a burning pain located in the mid abdomen. He denies any radiation of pain and currently the pain is a 8/10. He also has diaphoresis and feels "woozy". He denies any back pain, chest pain or SOB. He denies any abnormal foods. He does report an episode 10 days ago with similar symptoms - seen here in ED for cardiac etiology r/o - no significant findings. He does report having a sour taste in his mouth in the past and has had a previous endoscopy done - normal per patient. He denies any PMHx of GERD, aneurysms, or any dissections. Test results show WBC 12.6, glucose 177, lactic acid 2.6, increase LFTs with total bilirubin 3.5, AST 530, and ALT 338. UA negative for U.T.I. In ED course, the patient was given IV fluids, morphine for pain and Zofran for N/V. The patient continued to have the same symptoms therefore patient was given fentanyl 50 and 75 mcg and more Zofran for N/V. US Aorta- negative for AAA. US ABDOMEN LIMITED IMPRESSION: Biliary sludge and innumerable small poorly calcified gallstones in the gallbladder. Negative for significant gallbladder wall thickening, pericholecystic fluid, biliary dilatation, or sonographic Zambrano's sign to strongly support presence of acute cholecystitis. At this point, I discussed that case with Dr. Pickens (14:15) who recommends a GI consult. Since he think that the problem is in the common bile duct. Therefore, I discussed the case with Dr. Hare (15:30) who will consult for this patient. He also recommends an ABD/PEL CT and admission to the hospital. Therefore I discussed the case with Dr. Nuñez (15:58) and she will follow up with the results of the ABD/PEL CT and admit the [place] [facility] [place] Diagnoses Provider Diagnoses: Abdominal pain, LFTs abnormal - Provider Notifications Discussed Care Of Patient With: Wood Pickens Time Discussed With Above Provider: 14:14 - recommends GI consult. Discharge - Discharge Plan Condition: Stable Disposition: ADMITT[facility] TO [facility] The documentation as recorded by the Kelli segundo Auryana accurately reflects the service I personally performed and the decisions made by me, Miah James MD.
--- NOTE | 2017-04-23 17:58 | CONS ---
CC: Dr. Nuñez; Dr. Hare* CONSULTATION REPORT: DATE OF CONSULT: 04/23/17 PATIENT OF: Dr. Citlali Nuñez and Dr. Hare REFERRED TO: Dr. Robert Salgado REASON FOR CONSULT: Cholecystitis and cholelithiasis. HISTORY OF PRESENT ILLNESS: Mr. Urban is a pleasant 67-year-old gentleman, who presented to the emergency room yesterday with complaints of worsening epigastric pain for the past few days. The patient states that he was seen in the emergency room 10 days ago with similar type of pain that thought it might be cardiac in origin. He had a full cardiac workup back then and was found to be negative for which he was discharged home. He stated that the pain essentially resolved; however, 2 days ago, he started having similar epigastric pain. He reports pain has been burning sensation, localized to the epigastric area, occasionally radiates to the right upper quadrant and shoots towards his back. He reports associated nausea and 1 episode of vomiting prior to admission , but denies any fever, chills, changes in the color of stool or urine, or jaundice. He was evaluated in the emergency room and found to have elevated total bilirubin and LFTs, as well as evidence of cholelithiasis for which he was admitted for further evaluation regarding possible gallstone related elevated LFTs. The patient was seen by Dr. Hare and he had an MRCP earlier today that was essentially negative. Repeated LFTs earlier this morning revealed decrease in the level of his total bilirubin suggesting the passage of his choledocholithiasis. We were asked to see the patient in consultation and to discuss possible gallbladder surgery once cleared by GI provider. This morning, the patient reports that his pain has remarkably improved overnight. He still has some episodes of burning and sharp right upper quadrant abdominal pain, but denies any fever, chills, nausea, or vomiting. PAST MEDICAL HISTORY: Significant for hyperlipidemia and recent history of prostate cancer. PAST SURGICAL HISTORY: Significant for inguinal hernia repair back in the 1980s as well as da Karishma robotic prostatectomy last year at [facility]. HOME MEDICATIONS: Include: 1. Multivitamin 1 tablet orally q. day. 2. Viagra 50 to 100 mg orally as needed. 3. Aspirin 81 mg p.o. daily. 4. Atorvastatin 20 mg p.o. daily. ALLERGIES: He is allergic to SHELLFISH. FAMILY HISTORY: He denies any family history of gallbladder disease. Father from complication of CHF and mother with history of lymphoma. SOCIAL HISTORY: The patient never smoked and denies any recreational drug use. He occasionally drinks alcohol. REVIEW OF SYSTEMS: See HPI, otherwise negative. He denies any headache, dizziness, blurred vision, or double vision. No fever, chills, weight loss, or night sweats. He denies any chest pain, palpitation, cough, wheezing, or shortness of breath. No back pain, flank pain, dysuria, hematuria, or urinary frequency. He admits to epigastric and right upper quadrant abdominal pain with associated nausea, but denies any changes in the bowel habits, change in the color of stool or urine, or bleeding per rectum. PHYSICAL EXAM: General: He is a pleasant, healthy-appearing, upper middle- aged gentleman, in no acute distress or discomfort at the time of consultation. Vitals: Most recent set of vitals revealed blood pressure of 113/60, temperature of 99.4, pulse of 75, respirations of 16, and O2 sat of 93%. HEENT : Sclerae anicteric. PERRLA. EOMs intact. Oropharynx pink and moist. Neck: Supple. Trachea midline. No cervical adenopathy or thyromegaly. Lungs: Clear to auscultation bilaterally. Heart: Regular rate and rhythm. Normal S1 and S2 without rubs, murmurs, or gallops. Back with normal curvature. No CVA tenderness. Abdomen: Soft and nondistended. There is [id number] right upper quadrant tenderness on deep palpation noted. Some guarding noted, but no rigidity or rebound tenderness. There are no hernias, masses, or hepatosplenomegaly. Zambrano's sign was positive. Extremities without cyanosis, clubbing, or edema. Neurologic: Grossly intact. Rectal Exam: at this time. LABORATORY DATA: CBC this morning with elevated white count of 22,000, hemoglobin of 15, hematocrit of 47, and platelets of 196. He had repeated BMP this morning, revealed a sodium of 136, potassium 3.4, chloride 104, CO2 25, BUN of 10, creatinine of 0.9, and glucose of 113. His LFTs showed resolution of his elevated total bilirubin with value of 1.7 today, down from 3.5 yesterday ; AST is 131, down from 530; ALT is 201, down from 338; alkaline phosphatase is 110, down from 159. His amylase and lipase within normal limits. ACCESSORY DIAGNOSTIC DATA: As mentioned above, the patient had an MRCP this morning for a followup after CT scan yesterday showed evidence of cholecystitis and cholelithiasis. His MRCP showed distended gallbladder with mild wall thickening and pericholecystic fluid consistent with acute cholecystitis; however, it was negative for biliary dilatation or any evidence of choledocholithiasis. IMPRESSION: A 67-year-old gentleman with signs and symptoms as well as radiographic evidence of acute cholecystitis and cholelithiasis, appeared to pass a stone through his common bile duct as evident on laboratory workup, who is in need of laparoscopic cholecystectomy. PLAN: We went on and discussed with the patient proceeding with surgery. The rationale, indications, risks, and benefits of performing a laparoscopic cholecystectomy were discussed with him today. Risks include, but not limited to, infection, bleeding or injury to adjacent structures. We discussed with him the results of his MRCP and he will stay n.p.o. for now and we will cover him with IV antibiotics and follow him up accordingly. MICHAEL GIRALDO [id number]/CPS #: [id number] MTDD
[2017-04-23] MEDS ORDERED: Acetaminophen TAB* 325 MG PO PRN ×2 (18:43→19:17)
[2017-04-24] MEDS: HYDROmorphone* 1 MG/ML 1 ML SYR IV SLOW PU PRN ×3 (02:52→11:01)
[2017-04-24 04:54] LABS: Hematocrit 42 % (42-52); Hemoglobin 14.2 g/dl (14.0-18.0); Mean Corpuscular HGB Conc 34 g/dl (31-36); Mean Corpuscular Hemoglobin 32 pg (27-31); Mean Corpuscular Volume 93 fL (80-94); Mean Platelet Volume 8 um3 (7.4-10.4); Red Blood Count 4.45 10^6/ul (4.0-5.4); Red Cell Distribution Width 13 % (10.5-15); White Blood Count 19.1 10^3/ul (3.5-10.8)
[2017-04-24] MEDS: ZOSYN 3.375 GM Q8H per EXTENDED INFUSION IVPB SCH ×6 (05:01→22:37)
[2017-04-24] MEDS: Heparin VIAL(*) 5000 UNITS/ML VIAL (FIVE THOUSAND) SUBCUT SCH ×3 (05:05→21:18)
[2017-04-24] MEDS: Acetaminophen SUPP* 650 MG SUPP PR PRN (07:39)
--- NOTE | 2017-04-24 10:51 | PN ---
Progress Note - Progress Note Date of Service: 04/24/17 Note: EKG reviewed: NSR with HR 80s, no evidence of ischemia.
[2017-04-24] MEDS: NS 0.9% 1000 ML* 1,000 ML IV SCH (11:01)
[2017-04-24] MEDS ORDERED: Dexamethasone IV* 4 MG/ML 1 ML (4 MG) IV SLOW PU ONE (12:34)
[2017-04-24] MEDS ORDERED: Buffered Lidocaine 0.9% SYRIN* 5 ML/SYR SYRINGE INTRADERM ONE (12:34)
[2017-04-24] MEDS ORDERED: Famotidine IV* 10 MG/ML 2 ML (20 mg) IV ONE (12:34)
[2017-04-24] MEDS ORDERED: Famotidine IV* 10 MG/ML 2 ML (20 mg) ONE (12:38)
[2017-04-24] MEDS ORDERED: Dexamethasone IV* 4 MG/ML 1 ML (4 MG) ONE (12:39)
[2017-04-24] MEDS ORDERED: Bupivacaine 0.25% W/EPI* 50 ML VIAL ONE (12:58)
[2017-04-24] MEDS ORDERED: fentaNYL* 50 MCG/ML 5 ML VIAL (250 MCG VIAL) ONE (13:11)
[2017-04-24] MEDS ORDERED: Midazolam* 1 MG/ML 5 ML VIAL (5 MG) ONE (13:11)
[2017-04-24] MEDS ORDERED: Lidocaine 2% PF * 5 ML VIAL ONE (13:12)
[2017-04-24] MEDS ORDERED: Propofol* 10 MG/ML 20 ML BTL IV PUSH ONE (13:12)
[2017-04-24] MEDS ORDERED: Ketorolac INJ* 30 MG/ML 1 ML VIAL ONE (13:12)
[2017-04-24] MEDS ORDERED: Ondansetron INJ* 2 MG/ML VIAL ONE (13:12)
[2017-04-24] MEDS ORDERED: fentaNYL* 50 MCG/ML 2 ML VIAL (100 MCG VIAL) ONE ×2 (13:41→13:47)
[2017-04-24] MEDS ORDERED: Metoprolol Tartrate IV* 1 MG/ML 5 ML VIAL ONE (13:46)
[2017-04-24] MEDS ORDERED: HYDROmorphone* 1 MG/ML 1 ML SYR IV PRN (14:49)
[2017-04-24] MEDS ORDERED: Ondansetron INJ* 2 MG/ML VIAL IV PRN (14:49)
[2017-04-24] MEDS ORDERED: fentaNYL* 50 MCG/ML 2 ML VIAL (100 MCG VIAL) IV PRN (14:49)
[2017-04-24] MEDS ORDERED: oxyCODONE/Acetamin 5/325 MG* TAB PO PRN ×2 (14:49→14:58)
[2017-04-24] MEDS ORDERED: DiMENhydriNATE IV* 50 MG/ML VIAL IV PUSH PRN (14:49)
--- NOTE | 2017-04-24 17:19 | PN ---
Subjective Date of Service: 04/24/17 Interval History: Mr. Urban states that he is feeling quite well this afternoon after surgery. He denies abdominal pain or nausea at this time. He further denies chest pain or SOB. Objective Active Medications: Acetaminophen (Tylenol Supp*) 650 mg [place] Q6H PRN Acetaminophen (Tylenol Tab*) 650 mg PO Q6H PRN Dimenhydrinate (Dramamine Iv*) 25 mg IV PUSH ONCE PRN Fentanyl Citrate (Fentanyl*) 50 mcg IV Q2M PRN Heparin Sodium (Porcine) (Heparin Vial(*)) 5,000 units SUBCUT Q8HR JOHN Hydromorphone HCl (Dilaudid Iv*) 0.2 mg IV Q5M PRN Piperacillin Sod/Tazobactam (Sod 3.375 gm/ Sodium Chloride) 100 mls @ 25 mls/ hr IVPB Q8H JOHN Lactated Ringer's (Lactated Ringers 1000 Ml Bag*) 1,000 mls @ 125 mls/hr IV PER RATE JOHN Ondansetron HCl (Zofran Inj*) 4 mg IV Q6H PRN Ondansetron HCl (Zofran Inj*) 4 mg IV ONCE PRN Oxycodone/Acetaminophen (Percocet 5/325 Tab*) 1 tab PO ONCE PRN Oxycodone/Acetaminophen (Percocet 5/325 Tab*) 1 tab PO Q4H PRN Pharmacy Consult (Zosyn Per Pharmacy*) 1 note FOLLOW UP .[facility]YN [facility] Vital Signs 04/23/17 04/23/17 04/23/17 17:26 18:26 20:05 Temperature 101.2 F Pulse Rate 102 Respiratory 16 16 24 Rate Blood Pressure 117/60 (mmHg) O2 Sat by Pulse 91 Oximetry 04/23/17 04/23/17 04/23/17 20:45 21:04 22:53 Temperature 101.4 F Pulse Rate Respiratory 16 16 Rate Blood Pressure (mmHg) O2 Sat by Pulse Oximetry 04/23/17 04/24/17 04/24/17 23:53 00:02 02:52 Temperature 99.1 F Pulse Rate 92 Respiratory 16 16 20 Rate Blood Pressure 113/61 (mmHg) O2 Sat by Pulse 90 Oximetry 04/24/17 04/24/17 04/24/17 03:52 04:44 06:16 Temperature 99.3 F 98.7 F Pulse Rate 86 81 Respiratory 16 16 16 Rate Blood Pressure 123/62 122/60 (mmHg) O2 Sat by Pulse 87 97 Oximetry 04/24/17 04/24/17 04/24/17 06:58 07:28 11:01 Temperature 100.4 F Pulse Rate 90 Respiratory 16 18 28 Rate Blood Pressure 107/64 (mmHg) O2 Sat by Pulse 89 Oximetry 04/24/17 04/24/17 04/24/17 14:46 14:50 14:54 Temperature 98.2 F Pulse Rate 87 78 79 Respiratory 16 12 14 Rate Blood Pressure 124/72 126/68 114/67 (mmHg) O2 Sat by Pulse 97 96 95 Oximetry 04/24/17 04/24/17 04/24/17 15:00 15:05 15:15 Temperature Pulse Rate 75 74 82 Respiratory 17 18 20 Rate Blood Pressure 114/72 110/68 112/66 (mmHg) O2 Sat by Pulse 95 95 95 Oximetry 04/24/17 04/24/17 04/24/17 15:30 15:45 16:56 Temperature 98.4 F 99.6 F Pulse Rate 78 74 76 Respiratory 14 18 18 Rate Blood Pressure 130/70 126/68 123/74 (mmHg) O2 Sat by Pulse 95 96 98 Oximetry Oxygen Devices in Use Now: None Appearance: Male sitting up in chair in NAD Eyes: No Scleral Icterus Ears/Nose/Mouth/Throat: Mucous Membranes Moist Neck: NL Appearance and Movements; NL JVP Respiratory: Symmetrical Chest Expansion and Respiratory Effort, Clear to Auscultation Cardiovascular: NL Sounds; No Murmurs; No JVD, No Edema Abdominal: NL Sounds; No Tenderness; No Distention, - - Soft Lymphatic: No Cervical Adenopathy Extremities: No Edema Skin: - - Lap incisions well approximated, no drainage Neurological: Alert and Oriented x 3, NL Muscle Strength and Tone Result Diagrams: 04/24/17 04:30 04/23/17 04:57 Additional Lab and Data: Lab Results 04/22/17 04/22/17 04/22/17 Range/Units 11:45 11:45 11:45 WBC 12.6 H (3.5-10.8) 10^3/ul RBC 5.21 (4.0-5.4) 10^6/ul Hgb 16.3 (14.0-18.0) g/dl Hct 49 (42-52) % MCV 93 (80-94) fL MCH 31 (27-31) pg MCHC 34 (31-36) g/dl RDW 12 (10.5-15) % Plt Count 231 (150-450) 10^3/ul MPV 8 (7.4-10.4) um3 Neut % (Auto) 77.3 (38-83) % Lymph % (Auto) 12.4 L (25-47) % [place] % (Auto) 9.5 H (1-9) % Eos % (Auto) 0 (0-6) % Baso % (Auto) 0.8 (0-2) % Absolute Neuts (auto) 9.7 H (1.5-7.7) 10^3/ul Absolute Lymphs (auto) 1.6 (1.0-4.8) 10^3/ul Absolute Monos (auto) 1.2 H (0-0.8) 10^3/ul Absolute Eos (auto) 0 (0-0.6) 10^3/ul Absolute Basos (auto) 0.1 (0-0.2) 10^3/ul Absolute Nucleated RBC 0.01 10^3/ul Nucleated RBC % 0.1 Sodium 137 (133-145) mmol/L Potassium 3.6 (3.5-5.0) mmol/L Chloride 99 L (101-111) mmol/L Carbon Dioxide 27 (22-32) mmol/L Anion Gap 11 (2-11) mmol/L BUN 12 (6-24) mg/dL Creatinine 0.99 (0.67-1.17) mg/dL Est GFR ( Amer) 96.4 (>60) Est GFR (Non-Af Amer) 75.0 (>60) BUN/Creatinine Ratio 12.1 (8-20) Glucose 177 H (70-100) mg/dL Lactic Acid 2.6 H* (0.5-2.0) mmol/L Calcium 9.6 (8.6-10.3) mg/dL Magnesium 2.1 (1.9-2.7) mg/dL Total Bilirubin 3.50 H (0.2-1.0) mg/dL AST 530 H (13-39) U/L ALT 338 H (7-52) U/L Alkaline Phosphatase 159 H (34-104) U/L Troponin I 0.01 (<0.04) ng/mL C-Reactive Protein 58.82 H (< 5.00) mg/L B-Natriuretic Peptide ( - 100) pg/mL Total Protein 7.5 (6.4-8.9) g/dL Albumin 4.5 (3.2-5.2) g/dL Globulin 3.0 (2-4) g/dL Albumin/Globulin Ratio 1.5 (1-3) Lipase 18 (11.0-82.0) U/L Urine Color Urine Appearance Urine pH (5-9) Ur Specific [place] (1.010-1.030) Urine Protein (Negative) Urine Ketones (Negative) Urine Blood (Negative) Urine Nitrate (Negative) Urine Bilirubin (Negative) Urine Urobilinogen (Negative) Ur Leukocyte Esterase (Negative) Urine WBC (Auto) (Absent) Urine RBC (Auto) (Absent) Urine Bacteria (Absent) Urine Glucose (Negative) 04/22/17 04/22/17 Range/Units 11:45 13:05 WBC (3.5-10.8) 10^3/ul RBC (4.0-5.4) 10^6/ul Hgb (14.0-18.0) g/dl Hct (42-52) % MCV (80-94) fL MCH (27-31) pg MCHC (31-36) g/dl RDW (10.5-15) % Plt Count (150-450) 10^3/ul MPV (7.4-10.4) um3 Neut % (Auto) (38-83) % Lymph % (Auto) (25-47) % [place] % (Auto) (1-9) % Eos % (Auto) (0-6) % Baso % (Auto) (0-2) % Absolute Neuts (auto) (1.5-7.7) 10^3/ul Absolute Lymphs (auto) (1.0-4.8) 10^3/ul Absolute Monos (auto) (0-0.8) 10^3/ul Absolute Eos (auto) (0-0.6) 10^3/ul Absolute Basos (auto) (0-0.2) 10^3/ul Absolute Nucleated RBC 10^3/ul Nucleated RBC % Sodium (133-145) mmol/L Potassium (3.5-5.0) mmol/L Chloride (101-111) mmol/L Carbon Dioxide (22-32) mmol/L Anion Gap (2-11) mmol/L BUN (6-24) mg/dL Creatinine (0.67-1.17) mg/dL Est GFR ( Amer) (>60) Est GFR (Non-Af Amer) (>60) BUN/Creatinine Ratio (8-20) Glucose (70-100) mg/dL Lactic Acid (0.5-2.0) mmol/L Calcium (8.6-10.3) mg/dL Magnesium (1.9-2.7) mg/dL Total Bilirubin (0.2-1.0) mg/dL AST (13-39) U/L ALT (7-52) U/L Alkaline Phosphatase (34-104) U/L Troponin I (<0.04) ng/mL C-Reactive Protein (< 5.00) mg/L B-Natriuretic Peptide 173 H ( - 100) pg/mL Total Protein (6.4-8.9) g/dL Albumin (3.2-5.2) g/dL Globulin (2-4) g/dL Albumin/Globulin Ratio (1-3) Lipase (11.0-82.0) U/L Urine Color Yellow Urine Appearance Cloudy Urine pH 8.0 (5-9) Ur Specific [place] 1.014 (1.010-1.030) Urine Protein 1+(30 mg/dl) H (Negative) Urine Ketones 1+ H (Negative) Urine Blood Negative (Negative) Urine Nitrate Negative (Negative) Urine Bilirubin Negative (Negative) Urine Urobilinogen Negative (Negative) Ur Leukocyte Esterase Negative (Negative) Urine WBC (Auto) Absent (Absent) Urine RBC (Auto) 1+(3-5/hpf) H (Absent) Urine Bacteria Absent (Absent) Urine Glucose 1+(50 mg/dl) H (Negative) Assess/Plan/Problems-Billing Assessment: Mr. Urban is a 67 yo male with a PMH of hernia repair and prostatectomy who was admitted on 04/22/17 with cholecystitis. - Patient Problems (1) Cholecystitis Comment: - POD # 0 s/p cholecystectomy. - Management per surgery. - Continue zosyn, IVF. - Advance diet as tolerated. (2) Hyperlipidemia Comment: - Hold atorvastatin while NPO. (3) DVT prophylaxis (4) Full code status Status and Disposition: Inpatient with expected LOS > 2 days. Anticipate discharge to home when medically stable.
--- NOTE | 2017-04-25 02:29 | OP ---
CC: Andrew Bailey MD; Raymundo Hare MD * DATE OF OPERATION: 04/24/17 - ROOM #421 DATE OF : 46 SURGEON: Robert Salgado MD FUR STORAGE CLERK: Yeimy Kelly NP ANESTHESIOLOGIST: Dr. Partida. ANESTHESIA: General anesthetic, local infiltration. PRE-OP DIAGNOSIS: Acute cholecystitis. POST-OP DIAGNOSIS: Acute cholecystitis. OPERATIVE PROCEDURE: Laparoscopic cholecystectomy. DESCRIPTION OF PROCEDURE: The patient was supine on the operative table. After adequate general anesthetic, compression stockings, Heather Hugger warmer, and intravenous antibiotics, the abdomen was prepped with antiseptic, draped in a sterile fashion. Local infiltrative anesthesia was administered. Small umbilical incision was created. Blunt port cannula was placed. Insufflation was carried out with carbon dioxide. Additional cannulae 12 mm subxiphoid, 5 mm right upper quadrant and right anterior axillary line were placed through small stab wounds under direct vision. The gall-bladder was acutely inflamed. The omentum was plastered onto this. This was peeled off. The gallbladder needed to be drained to be retracted. This was accomplished without difficulty. The cystic duct was identified right off the Jeaneth's pouch in the gallbladder. It was easily encircled and very edematous. It was divided with an Endo HUY stapler with a 45 mm olvera cartridge. Additional dissection identified the artery, which was taken close to the gland as well, and the gallbladder was then taken off the liver bed. There was really no plane, so it was a difficult dissection. Ultimately, the gallbladder was dissected free and placed in a retriever bag. The gallbladder fossa was made hemostatic using pressure with Surgicel and gauze pads until adequate hemostasis was obtained. Some electrocautery was utilized as well. The gauze pads, Surgicel and gallbladder were all retrieved. Copious irrigation was carried out with about 3 L of warm saline solution, free fluid suctioned out. Hemostasis was again confirmed. The cannulae were removed. Pneumoperitoneum allowed to escape. The fascia of the 2 larger incisions were closed with 0 Polysorb, skin with 5-0 Polysorb followed by Steri-Strips. He tolerated the procedure well, was awakened and brought to Recovery in good condition. There were no complications. No drains. Pathologic specimens was gallbladder. Sponge, instruments counts correct. Estimated blood loss 100 mL. Note this procedure was substantially more difficult and time consuming than usual. [id number]/[facility] #: [id number] ANGEL
[2017-04-25] MEDS: Heparin VIAL(*) 5000 UNITS/ML VIAL (FIVE THOUSAND) SUBCUT SCH (05:50)
[2017-04-25] MEDS: ZOSYN 3.375 GM Q8H per EXTENDED INFUSION IVPB SCH ×2 (05:50)
[2017-04-25 07:10] LABS: Hematocrit 41 % (42-52); Hemoglobin 13.9 g/dl (14.0-18.0); Mean Corpuscular HGB Conc 34 g/dl (31-36); Mean Corpuscular Hemoglobin 32 pg (27-31); Mean Corpuscular Volume 94 fL (80-94); Mean Platelet Volume 8 um3 (7.4-10.4); Red Blood Count 4.32 10^6/ul (4.0-5.4); Red Cell Distribution Width 13 % (10.5-15); White Blood Count 10.3 10^3/ul (3.5-10.8)
[2017-04-25 07:26] LABS: BUN/Creatinine Ratio 21.9 (8-20); Calcium 8.1 mg/dL (8.6-10.3); EGFR Non-African American 106.5 (>60); Globulin 2.7 g/dL (2-4); Potassium 3.9 mmol/L (3.5-5.0); Total Bilirubin 0.7 mg/dL (0.2-1.0); Total Protein 5.7 g/dL (6.4-8.9)
--- NOTE | 2017-04-25 08:03 | PN ---
Subjective Date of Service: 04/25/17 Interval History: Mr. Urban states that he is feeling quite well and is eager for discharge to home. He denies chest pain, SOB, or nausea. He has minimal abdominal pain and is ambulating in his room independently. Objective Active Medications: Acetaminophen (Tylenol Supp*) 650 mg [place] Q6H PRN Acetaminophen (Tylenol Tab*) 650 mg PO Q6H PRN Heparin Sodium (Porcine) (Heparin Vial(*)) 5,000 units SUBCUT Q8HR JOHN Piperacillin Sod/Tazobactam (Sod 3.375 gm/ Sodium Chloride) 100 mls @ 25 mls/ hr IVPB Q8H JOHN Lactated Ringer's (Lactated Ringers 1000 Ml Bag*) 1,000 mls @ 125 mls/hr IV PER RATE JOHN Ondansetron HCl (Zofran Inj*) 4 mg IV Q6H PRN Oxycodone/Acetaminophen (Percocet 5/325 Tab*) 1 tab PO Q4H PRN Pharmacy Consult (Zosyn Per Pharmacy*) 1 note FOLLOW UP .ZOSYN PER PHARMACY [facility] Vital Signs 04/24/17 04/24/17 04/24/17 11:01 12:01 14:46 Temperature 98.2 F Pulse Rate 87 Respiratory 28 20 16 Rate Blood Pressure 124/72 (mmHg) O2 Sat by Pulse 97 Oximetry 04/24/17 04/24/17 04/24/17 14:50 14:54 15:00 Temperature Pulse Rate 78 79 75 Respiratory 12 14 17 Rate Blood Pressure 126/68 114/67 114/72 (mmHg) O2 Sat by Pulse 96 95 95 Oximetry 04/24/17 04/24/17 04/24/17 15:05 15:15 15:30 Temperature 98.4 F Pulse Rate 74 82 78 Respiratory 18 20 14 Rate Blood Pressure 110/68 112/66 130/70 (mmHg) O2 Sat by Pulse 95 95 95 Oximetry 04/24/17 04/24/17 04/24/17 15:45 16:00 16:56 Temperature 99.6 F Pulse Rate 74 76 Respiratory 18 18 Rate Blood Pressure 126/68 123/74 (mmHg) O2 Sat by Pulse 96 98 98 Oximetry 04/24/17 04/24/17 04/24/17 17:18 18:31 20:00 Temperature 98.5 F 99.1 F Pulse Rate 68 73 Respiratory 19 24 17 Rate Blood Pressure 124/68 115/72 (mmHg) O2 Sat by Pulse 98 97 Oximetry 04/24/17 04/24/17 04/24/17 20:13 22:18 23:43 Temperature 97.5 F 98.0 F 98.5 F Pulse Rate 64 73 67 Respiratory 16 20 18 Rate Blood Pressure 147/81 124/69 118/68 (mmHg) O2 Sat by Pulse 97 95 96 Oximetry 04/25/17 04/25/17 04/25/17 00:00 03:01 07:20 Temperature 98.1 F 98.8 F Pulse Rate 56 59 Respiratory 16 18 Rate Blood Pressure 128/77 107/63 (mmHg) O2 Sat by Pulse 96 95 95 Oximetry Oxygen Devices in Use Now: None Appearance: Male ambulating in room in NAD Eyes: No Scleral Icterus Ears/Nose/Mouth/Throat: Mucous Membranes Moist Neck: Trachea Midline Respiratory: Symmetrical Chest Expansion and Respiratory Effort, Clear to Auscultation Cardiovascular: NL Sounds; No Murmurs; No JVD, No Edema Abdominal: NL Sounds; No Tenderness; No Distention, - - Lap sites with steri strips CDI Lymphatic: No Cervical Adenopathy Extremities: No Edema Skin: No Rash or Ulcers Neurological: Alert and Oriented x 3, NL Muscle Strength and Tone Nutrition: Taking PO's Result Diagrams: 04/25/17 07:05 04/25/17 07:05 Additional Lab and Data: Lab Results 04/22/17 04/22/17 04/22/17 Range/Units 11:45 11:45 11:45 WBC 12.6 H (3.5-10.8) 10^3/ul RBC 5.21 (4.0-5.4) 10^6/ul Hgb 16.3 (14.0-18.0) g/dl Hct 49 (42-52) % MCV 93 (80-94) fL MCH 31 (27-31) pg MCHC 34 (31-36) g/dl RDW 12 (10.5-15) % Plt Count 231 (150-450) 10^3/ul MPV 8 (7.4-10.4) um3 Neut % (Auto) 77.3 (38-83) % Lymph % (Auto) 12.4 L (25-47) % [place] % (Auto) 9.5 H (1-9) % Eos % (Auto) 0 (0-6) % Baso % (Auto) 0.8 (0-2) % Absolute Neuts (auto) 9.7 H (1.5-7.7) 10^3/ul Absolute Lymphs (auto) 1.6 (1.0-4.8) 10^3/ul Absolute Monos (auto) 1.2 H (0-0.8) 10^3/ul Absolute Eos (auto) 0 (0-0.6) 10^3/ul Absolute Basos (auto) 0.1 (0-0.2) 10^3/ul Absolute Nucleated RBC 0.01 10^3/ul Nucleated RBC % 0.1 Sodium 137 (133-145) mmol/L Potassium 3.6 (3.5-5.0) mmol/L Chloride 99 L (101-111) mmol/L Carbon Dioxide 27 (22-32) mmol/L Anion Gap 11 (2-11) mmol/L BUN 12 (6-24) mg/dL Creatinine 0.99 (0.67-1.17) mg/dL Est GFR ( Amer) 96.4 (>60) Est GFR (Non-Af Amer) 75.0 (>60) BUN/Creatinine Ratio 12.1 (8-20) Glucose 177 H (70-100) mg/dL Lactic Acid 2.6 H* (0.5-2.0) mmol/L Calcium 9.6 (8.6-10.3) mg/dL Magnesium 2.1 (1.9-2.7) mg/dL Total Bilirubin 3.50 H (0.2-1.0) mg/dL AST 530 H (13-39) U/L ALT 338 H (7-52) U/L Alkaline Phosphatase 159 H (34-104) U/L Troponin I 0.01 (<0.04) ng/mL C-Reactive Protein 58.82 H (< 5.00) mg/L B-Natriuretic Peptide ( - 100) pg/mL Total Protein 7.5 (6.4-8.9) g/dL Albumin 4.5 (3.2-5.2) g/dL Globulin 3.0 (2-4) g/dL Albumin/Globulin Ratio 1.5 (1-3) Lipase 18 (11.0-82.0) U/L Urine Color Urine Appearance Urine pH (5-9) Ur Specific [place] (1.010-1.030) Urine Protein (Negative) Urine Ketones (Negative) Urine Blood (Negative) Urine Nitrate (Negative) Urine Bilirubin (Negative) Urine Urobilinogen (Negative) Ur Leukocyte Esterase (Negative) Urine WBC (Auto) (Absent) Urine RBC (Auto) (Absent) Urine Bacteria (Absent) Urine Glucose (Negative) 04/22/17 04/22/17 Range/Units 11:45 13:05 WBC (3.5-10.8) 10^3/ul RBC (4.0-5.4) 10^6/ul Hgb (14.0-18.0) g/dl Hct (42-52) % MCV (80-94) fL MCH (27-31) pg MCHC (31-36) g/dl RDW (10.5-15) % Plt Count (150-450) 10^3/ul MPV (7.4-10.4) um3 Neut % (Auto) (38-83) % Lymph % (Auto) (25-47) % [place] % (Auto) (1-9) % Eos % (Auto) (0-6) % Baso % (Auto) (0-2) % Absolute Neuts (auto) (1.5-7.7) 10^3/ul Absolute Lymphs (auto) (1.0-4.8) 10^3/ul Absolute Monos (auto) (0-0.8) 10^3/ul Absolute Eos (auto) (0-0.6) 10^3/ul Absolute Basos (auto) (0-0.2) 10^3/ul Absolute Nucleated RBC 10^3/ul Nucleated RBC % Sodium (133-145) mmol/L Potassium (3.5-5.0) mmol/L Chloride (101-111) mmol/L Carbon Dioxide (22-32) mmol/L Anion Gap (2-11) mmol/L BUN (6-24) mg/dL Creatinine (0.67-1.17) mg/dL Est GFR ( Amer) (>60) Est GFR (Non-Af Amer) (>60) BUN/Creatinine Ratio (8-20) Glucose (70-100) mg/dL Lactic Acid (0.5-2.0) mmol/L Calcium (8.6-10.3) mg/dL Magnesium (1.9-2.7) mg/dL Total Bilirubin (0.2-1.0) mg/dL AST (13-39) U/L ALT (7-52) U/L Alkaline Phosphatase (34-104) U/L Troponin I (<0.04) ng/mL C-Reactive Protein (< 5.00) mg/L B-Natriuretic Peptide 173 H ( - 100) pg/mL Total Protein (6.4-8.9) g/dL Albumin (3.2-5.2) g/dL Globulin (2-4) g/dL Albumin/Globulin Ratio (1-3) Lipase (11.0-82.0) U/L Urine Color Yellow Urine Appearance Cloudy Urine pH 8.0 (5-9) Ur Specific [place] 1.014 (1.010-1.030) Urine Protein 1+(30 mg/dl) H (Negative) Urine Ketones 1+ H (Negative) Urine Blood Negative (Negative) Urine Nitrate Negative (Negative) Urine Bilirubin Negative (Negative) Urine Urobilinogen Negative (Negative) Ur Leukocyte Esterase Negative (Negative) Urine WBC (Auto) Absent (Absent) Urine RBC (Auto) 1+(3-5/hpf) H (Absent) Urine Bacteria Absent (Absent) Urine Glucose 1+(50 mg/dl) H (Negative) Assess/Plan/Problems-Billing Assessment: Mr. Urban is a 67 yo male with a PMH of hernia repair and prostatectomy who was admitted on 04/22/17 with cholecystitis. - Patient Problems (1) Cholecystitis Comment: - POD # 1 s/p cholecystectomy. - Will follow [facility] with [facility]. (2) Hyperlipidemia Comment: - Hold atorvastatin while NPO. (3) DVT prophylaxis (4) Full code status Status and Disposition: Inpatient with expected LOS > 2 days. Discharge to home.
--- NOTE | 2017-04-25 11:00 | PN ---
Progress Note - Progress Note Date of Service: 04/25/17 SOAP: Subjective: Doing very well, has no complaints. Tolerating regular diet, denies pain, nausea or vomiting. No fever or chills. Ready to go home. Objective: Awake and alert, in NAD VSS, afebrile Abdomen soft, NT, ND Incisions clean, dry and intact. Assessment: POD#1, s/p laparoscopic cholecystectomy, doing well. Plan: D/C IV D/C to home later today F/U with [facility] office next .
[2017-04-25 12:02] VITALS: BP 124/65
--- NOTE | 2017-04-26 15:58 | DS ---
CC: Dr. Bailey * DISCHARGE SUMMARY: DATE OF ADMISSION: 04/22/17 DATE OF DISCHARGE: 04/25/17 PRIMARY CARE PHYSICIAN: Dr. Bailey. ATTENDING PHYSICIAN: Dr. Andreia Carter * (dictation provided by Brandie Lovell NP ). PRIMARY DIAGNOSIS: Cholecystitis, status post cholecystectomy. SECONDARY DIAGNOSES: 1. Hyperlipidemia. 2. Prostate cancer, status post laparoscopic prostatectomy in 2016. 3. History of hernia repair. MEDICATIONS AT THE TIME OF DISCHARGE: 1. Oxycodone with acetaminophen 5/325 mg as needed. 2. Multivitamin 1 tablet oral daily. 3. Viagra 50 to 100 mg as needed for erectile dysfunction. 4. Aspirin 81 mg oral daily. 5. Atorvastatin 20 mg oral daily. HOSPITAL COURSE: Mr. Urban is a 67-year-old male with past medical history of prostate cancer, status post prostatectomy, who presented to the ER on with concern for burning epigastric pain. Please see dictated H and P from Heidi Fernando NP, for complete details. In brief, the patient reported that he had burning epigastric pain. He had had it 10 days prior to admission, but then it had been resolved. In the emergency room, he was noted to have elevated LFTs with AST of 530, ALT 338, T-bili 3.5. He had an abdominal ultrasound showing biliary sludge and innumerable small poorly calcified gallstones in the gallbladder. CT abdomen and pelvis showed cholelithiasis with pericholecystic inflammatory change suggestive of acute cholecystitis with a gallstone located in the neck of the gallbladder. Mr. Urban was admitted to the hospital and received GI and Surgery consultations. The registered nurse supervisor, Dr. Hare, recommended MRCP, which is read as follows: "Distended gallbladder with cholelithiasis, mild wall thickening and trace pericholecystic fluid concerning for acute cholecystitis, negative for biliary dilatation or evidence of choledocholithiasis." He was then consulted on by [facility], who recommended that the patient go for surgery. Mr. Urban had cholecystectomy on 04/24/17, I refer you to the notes from Dr. Salgado for complete details, but in brief, the patient has been doing well postoperatively. He originally had an elevated white blood cell count to 22.4; it is now down to 10.3. He continued on Zosyn during the hospitalization, but now that his gallbladder is removed and his vitals and white count are stable, he can be discharged home. Mr. Urban is medically stable for discharge home to follow up closely with Dr. Salgado and his team in the office as outpatient. DISPOSITION: Home. DIET: Low fat. ACTIVITY: As tolerated, but with precautions as outlined per surgical services. TIME SPENT: Approximately 60 minutes was spent on the discharge of this patient and more than half of the time was spent with the patient at the bedside reviewing the events leading up to this hospitalization, performing the physical examination, and reviewing my plan of care. BRANDIE LOVELL NP [id number]/[facility] #: [id number] ANGEL
== END 2017-04-25 12:10 | disposition home or self-care (01) | DRG 419 ==
LOC: ED 10:59 → MED 16:13
PROVIDERS: ADMIT Internal Medicine; ATTEND Internal Medicine
PROC: 0FT44ZZ Resection of Gallbladder, Percutaneous Endoscopic Approach (ICD-10-PCS; principal; 2017-04-22)
DX: K80.00 Calculus of gallbladder with acute cholecystitis without obstruction (principal); E78.5 Hyperlipidemia, unspecified; K21.9 Gastro-esophageal reflux disease without esophagitis; Z91.013 Allergy to seafood; Z85.46 Personal history of malignant neoplasm of prostate; Z82.49 Family history of ischemic heart disease and other diseases of the circulatory system; Z80.7 Family history of other malignant neoplasms of lymphoid, hematopoietic and related tissues; Z72.89 Other problems related to lifestyle; K40.90 Unilateral inguinal hernia, without obstruction or gangrene, not specified as recurrent; Z80.0 Family history of malignant neoplasm of digestive organs; E78.00 Pure hypercholesterolemia, unspecified; Z79.82 Long term (current) use of aspirin
CPT/HCPCS: 36415; 74176; 74181; 76376; 76705; 76775; 80053; 81003; 81015; 83036; 83605; 83690; 83735; 83880; 84484; 85025; 86140; 88304; 93005; A9270-GY; C1776; J1100; J1170; J1644; J1885; J2250; J2270; J2405; J2543; J2704; J3010